=== PATIENT | male | born 1960 | race Caucasian/White ===

== ENCOUNTER 2019-02-10 09:09 | Inpatient (IN) ==
--- NOTE | 2019-01-11 10:54 | Anesthesiology Consultation ---
Date of Service January 11, 2019 Assessment & Plan (1) Encounter for pre-operative examination: Chart Review Chart Review: Patient seen in Pre Admission Testing Consults Requested none Teaching & Discussion Pre-Anesthesia Teaching/Discussion Notes: Instructed NPO after midnight before surgery, except medications with 15 cc of water. Medication instructions provided according to the PAT guidelines. History Surgery Operation Date: 02/10/19 08:50 Proposed Procedures p Left Total Knee Arthroplasty - Jason Bird DO Height/Weight Height: 6 ft 1 in Weight: 127.6 kg Allergies Allergy/AdvReac Type Severity Reaction Status Date / Time No Known Allergies Allergy Unknown Verified 01/05/19 08:05 Medications Home Medications Medication Instructions Recorded Confirmed Last Taken lisinopril 10 mg PO QAM 11/14/18 01/05/19 Unknown omeprazole 40 mg PO QAM 11/14/18 01/05/19 Unknown ondansetron HCl [Zofran] 8 mg PO TID PRN 11/14/18 01/05/19 Unknown Past Medical History Medical History Fibromyalgia GERD (gastroesophageal reflux disease) Hepatitis History of difficult intubation 11/23/12: Intubated using a glidescope and ETT #8.0 History of heavy alcohol consumption LAST DRINK 11/04/18 History of pancreatitis Hypertension Left bundle branch block Osteoarthritis Polymyalgia Past Surgical History Surgical History Fusion of spine LUMBAR History of arthroscopy RT/LEFT KNEE History of cardiac cath 10 YEARS AGO (NO STENTS/ANGIOPLASTY) - [facility] - DOES NOT FOLLOW W/ CARDIO. DUE TO LBBB. History of cholecystectomy 11/23/12: Intubated using a glidescope and ETT #8.0 History of colonoscopy History of discectomy LUMBAR History of esophagogastroduodenoscopy (EGD) History of tonsillectomy History of tooth extraction History of umbilical hernia repair Past Anesthesia History No Hx of Anesthesia Complications and No Family Hx of Anesthesia Complications History of PONV No Motion Sickness Screening History of Motion Sickness: No Social History Smoking Status: Former smoker Smoking cigarettes per day: SMOKED 1 PPD X 5 YEARS Do You Dip or Chew Tobacco: No Smoking End Date: QUIT OVER 20 YEARS AGO Hx Alcohol Use: No Alcohol type: wine, hard liquor and other alcohol intake frequency: 3 or more drinks per day (6 SHOTS AND A BOTTLE OF WINE PER DAY) Alcohol Intake Frequency Comment: LAST DRINK 11/04/18 Hx Substance Use: No substance use type: does not use Exercise / Class Metabolic Activity II 4-5 Yardwork/Stairs/Walk up hill (Rides stationary bike for 45 minutes, 3-4 times per week. Able to climb FOS. Denies CP. Does have mild SOB since gaining weight. ) Review of Systems Patient denies chest pain, shortness of breath, cough, wheezing, palpitations. +JURADO with some activities since gaining the last 30lbs +joint pain (knee, shoulders, neck, back) +acid reflux (controlled with medications) Physical Exam Vital Signs BP: 139/86 P: 77 R: 18 T: 97.8 SPO2: 96% on RA Constitutional + obese ENMT Mouth: + dentures (Upper partial) Thyromental Distance: < 3.5 Finger Breadths (3) Mallampati Class: I Neck normal visual inspection and trachea midline; neck extension not limited Respiratory normal respiratory effort Auscultation: lungs clear to auscultation bilaterally Cardiovascular Rate/Rhythm: regular rate and regular rhythm Heart Sounds: no murmur Vessels: no carotid bruit Neurologic moves all extremities Psychiatric Orientation: alert and oriented x 3 Testing Electrocardiogram Date: 01/11/19 Findings: + NSR @ (88) and + LBBB When compared with ECG of 11/24/12, T wave inversion is more evident in lateral leads. Chest X-Ray Date: 01/11/19 Findings: + NAD FINDINGS: A few small linear densities at the base of the lingula. This favors atelectasis or scarring. The lungs are otherwise clear. The heart is borderline enlarged. This remains unchanged. No pleural effusions. No pneumothorax. IMPRESSION: No significant change compared to the prior study. No acute process. Cardiac Catheterization Date: 12/19/12 Findings: + normal Intervention: + none The LVEDP is mildly elevated. Left ventricular systolic function is low normal. EF 50%. Left ventricular segmental wall motion is normal. The coronary arteries are angiographyically normal. Recommendations: Aggressive risk factor and life style modification. Continued medical management. Laboratory Results 01/11/19 10:35 01/11/19 10:35 Blood Type A Positive 01/11/19 10:35 Antibody Screen NEGATIVE 01/11/19 10:35 PT 10.9 Seconds (9.0-12.0) 01/11/19 10:35 INR 1.1 (0.9-1.1) 01/11/19 10:35 APTT 28.2 Seconds (21.0-31.0) 01/11/19 10:35
[2019-01-11 10:58] LABS: Basophils # (auto) 0.04 K/uL (0-0.2); Basophils % (auto) 0.5 %; Eosinophils # (auto) 0.19 K/uL (0-0.5); Eosinophils % (auto) 2.4 %; Hematocrit (blood only) 40.5 % (42-52); Hemoglobin 14.7 g/dL (14.0-18.0); Immature Granulocytes # (auto) 0.02 K/uL (0.00-0.02); Immature Granulocytes % (auto) 0.3 %; Lymphocytes # (auto) 1.44 K/uL (1.2-3.4); Lymphocytes % (auto) 18.1 %; Mean Corpuscular Hgb Conc 36.3 g/dL (32-36); Mean Platelet Volume 9.5 fL (7.4-10.4); Monocytes # (auto) 0.37 K/uL (0.11-0.59); Monocytes % (auto) 4.6 %; Neutrophils # (auto) 5.91 K/uL (1.4-6.5); Neutrophils % (auto) 74.1 %; Platelet Count 169 K/uL (130-400); RDW Coefficient of Variation 12.7 % (11.5-14.5); RDW Standard Deviation 42.5 fL (36.4-46.3); White Blood Count 7.97 K/uL (4.8-10.8)
--- NOTE | 2019-01-11 11:06 | PAT Medication Instructions ---
Medication Instructions Date of Service January 11, 2019 Home Medications lisinopril 10 mg PO QAM omeprazole 40 mg PO QAM DO NOT take the morning of surgery lisinopril 10 mg PO QAM Take morning of surgery With a small sip of water, OTHERWISE NOTHING TO EAT OR DRINK AFTER MIDNIGHT: omeprazole 40 mg PO QAM Other Notes If you have any questions please call us at [phone] or [phone] or [phone] or [phone]
[2019-01-11 11:11] LABS: INR 1.1 (0.9-1.1); Partial Thromboplastin Time 28.2 Seconds (21.0-31.0); Prothrombin Time 10.9 Seconds (9.0-12.0)
--- NOTE | 2019-01-11 11:26 | XRay Report ---
XR chest Pre-admission PA/Lat HISTORY: Preop. COMPARISON: Chest 11/23/2012. FINDINGS: A few small linear densities at the base of the lingula. This favors atelectasis or scarrin g. The lungs are otherwise clear. The heart is borderline enlarged. This remains unchanged. No pleura l effusions. No pneumothorax. IMPRESSION: No significant change compared to the prior study. No acute process. Electronically signed by: Augusto De Anda M.D. 01/11/2019 11:24 AM
[2019-01-11 13:19] LABS: Albumin Level 3.6 gm/dl (3.4-5.0); BUN Creatinine Ratio 11.5 (10-20); Bilirubin Direct 0.2 mg/dl (0-0.2); Calcium 8.8 mg/dl (8.5-10.1); Creatinine Clr Calc Pharmacy 118.9 ml/min; Est GFR (African American) 101.3; Est GFR (Non-African American) 87.4; Potassium 4.3 mmol/L (3.5-5.1)
[2019-01-11 13:21] LABS: Bilirubin,Total 0.9 mg/dl (0.2-1); Total Protein 7.5 gm/dl (6.4-8.2)
--- NOTE | 2019-02-08 07:37 | History & Physical Report ---
Date of Service February 08, 2019 Assessment & Plan (1) Osteoarthritis of left knee: We will proceed with a left total knee arthroplasty. Postoperatively he will be started on aspirin for DVT prophylaxis and kept overnight in the hospital for postop medical management. He plans to use energy physical therapy upon discharge. Present on Admission?: Yes History of Present Illness Chief Complaint: Primary osteoarthritis of the left knee Primary Care Provider: Laura Casas MD Roscoe is a pleasant 58-year-old male who underwent an ACL reconstruction of his knee at [facility] about 20 years ago. Unfortunately he is gone on to develop osteoarthritis of his left knee. After failing extensive conservative treatment including multiple injections, he is elected to proceed with a left total knee arthroplasty. Allergies Allergy/AdvReac Type Severity Reaction Status Date / Time No Known Allergies Allergy Unknown Verified 01/05/19 08:05 Home Medications Home Medications Medication Instructions Recorded Confirmed Type lisinopril 10 mg PO QAM 11/14/18 01/05/19 History omeprazole 40 mg PO QAM 11/14/18 01/05/19 History ondansetron HCl [Zofran] 8 mg PO TID PRN 11/14/18 01/05/19 History Past Med/Surg History Medical History Fibromyalgia GERD (gastroesophageal reflux disease) Hepatitis History of heavy alcohol consumption LAST DRINK 11/04/18 History of pancreatitis Hypertension Left bundle branch block Osteoarthritis Polymyalgia Surgical History Fusion of spine LUMBAR History of arthroscopy RT/LEFT KNEE History of cardiac cath 10 YEARS AGO (NO STENTS/ANGIOPLASTY) - [facility] - DOES NOT FOLLOW W/ CARDIO. DUE TO LBBB. History of cholecystectomy 11/23/12: Intubated using a glidescope and ETT #8.0 History of colonoscopy History of difficult intubation 11/23/12: Intubated using a glidescope and ETT #8.0 History of discectomy LUMBAR History of esophagogastroduodenoscopy (EGD) History of tonsillectomy History of tooth extraction History of umbilical hernia repair Social History Preferred Language: Bengali Communication Ability: Effective Assembler Knife Required: No Beliefs That Will Affect Care: None Current Living Situation: Spouse Other Information That Helps Us Care for You: No Feels Safe at Home: Yes Safety Concerns: Feels Safe At This Time Smoking Status: Former smoker Hx Alcohol Use: No Hx Substance Use: No Review of Systems All systems reviewed & are unremarkable except as noted in HPI & below Physical Exam Constitutional: WD/WN, vitals as above Eyes: PERRL, conjunctivae normal, anicteric sclerae ENMT: external ear and nose normal, oropharynx normal Neck: trachea midline, no thyromegaly Respiratory: normal respiratory effort Cardiovascular: RRR, no murmur, no edema Gastrointestinal (Abdomen): normal bowel sounds, soft, nontender, no he patosplenomegaly Musculoskeletal: On physical examination of the left knee there is a trace effusion. There is near full range of motion and no evidence of instability. There is significant tenderness palpation along the medial and lateral joint lines and over the distal femoral condyles. Psychiatric: A+Ox3, euthymic affect Results & Data Diagnostic Findings Radiographs of the left knee demonstrate advanced osteoarthritis with joint space narrowing osteophyte formation and [id number] articulation. There are screws placed in both the metadiaphyseal regions of the distal femur and proximal tibia from the ACL procedure.
[~2019-02-10 09:09] MED LIST: ACETAMINOPHEN 500 MG TAB PO SCH; BUPIVACAINE 0.5 % 5 MG/1 ML PF 10ML VIAL ONE; CEFAZOLIN 3000MG 65 ML IV SCH; FAMOTIDINE 20 MG TAB PO SCH; GABAPENTIN 300 MG x 3 PO SCH; LR 500ML BOLUS, THEN 15ML/HR IV SCH; LR 60ML/HR IV SCH; ROPIVACAINE 0.5% 5 MG/ML 30 ML VIAL ONE; ROPIVACAINE 0.5% HCL/PF 150 MG, BUPIVACAINE 0.5% MPF 30 ML, EPINEPHrine 30MG/30ML (OR U... INFIL SCH; TRANEXAMIC ACID 1,000 MG **IV Intra-op IV SCH; TRANEXAMIC ACID 1,000 MG **IV Pre-op IV SCH
--- NOTE | 2019-02-10 09:49 | History & Physical Bridge Note ---
Date of Service February 10, 2019 History & Physical Bridge Note I have examined the patient, reviewed the History & Physical and in the interval since the performance of the History & Physical I have noted the following changes of clinical significance: no changes noted
[2019-02-10] MEDS ORDERED: MIDAZOLAM HCL 1 MG/ML 2ML VIAL ONE ×2 (10:05→12:21)
[2019-02-10] MEDS ORDERED: fentaNYL citrate 100 MCG/2 ML VIAL ONE (10:05)
[2019-02-10] MEDS ORDERED: ePHEDrine sulfate 50 MG/ML AMP IV PRN (11:17)
[2019-02-10] MEDS ORDERED: fentaNYL citrate 100 MCG/2 ML VIAL IV PRN (11:17)
[2019-02-10] MEDS ORDERED: ATROPINE SULFATE 0.1 MG/ML 10ML SYR IV PRN (11:17)
[2019-02-10] MEDS ORDERED: HYDROmorphone INJ 1 MG/ML SYRINGE IV PRN (11:17)
[2019-02-10] MEDS ORDERED: ONDANSETRON INJ 2 MG/ML 2 ML VIAL IV PRN ×2 (11:17→16:37)
[2019-02-10] MEDS ORDERED: POVIDONE-IODINE OP SOLN 30 ML BTL ONE (11:56)
[2019-02-10] MEDS ORDERED: ONDANSETRON INJ 2 MG/ML 2 ML VIAL ONE (11:56)
[2019-02-10] MEDS ORDERED: ORTHO JOINT ANESTHETIC ONE (11:56)
[2019-02-10] MEDS ORDERED: PROPOFOL IV EMULSION 10 MG/ML 20 ML VIAL IV ONE ×4 (12:24→13:49)
--- NOTE | 2019-02-10 14:45 | Operative Report ---
Post Operative Report Pre & Post Diagnosis Operation Date: 02/10/19 11:40 Pre-Op Diagnosis: Left Knee Osteoarthritis Post-Op Diagnosis: Left Knee Osteoarthritis Procedure Operation Date: 02/10/19 11:40 Actual Procedures p Left Total Knee Arthroplasty(Left) - Jason Bird DO Surgeon Jason Bird DO Air Bag Stripper Jason Dee PAC Estimated Blood Loss 20 Findings Consistent with Post-Op Diagnosis Specimens Left femoral and tibial bone Complications none Disposition Disposition: Recovery Room Indications Roscoe is a pleasant 59-year-old male who underwent a left ACL reconstruction over 20 years ago. Unfortunately is gone on to develop arthritis of his left knee. He had significant tightness and deformity of his left knee. After failing years of conservative treatment, he elected to proceed with a left total knee arthroplasty. Description of Procedure This case took about twice as long as a standard total knee arthroplasty due to retained hardware and scarring. The knee was very difficult to bend. I had to release a lot of scar tissue from around the ACL and around the suprapatellar pouch. Special guided instrumentation had to be done to help me get around retained hardware. Implants used: I used a Biomet Vanguard total knee arthroplasty system with a size 70 femur, 75 tibia, 31 patella, and a size 10 PS polyethylene bearing. All components were cemented in place with Palacos G cement. The patient arrived [facility] for the above procedure. There were seen in the preoperative holding area and the operative extremity was identified and signed. There were given a preoperative antibiotic, a spinal anesthetic and an adductor nerve block. There were taken back to the operating room and laid on the table in supine position. There were given basic sedation. The operative knee was then prepped and draped in sterile fashion. A timeout was done, and the patient and the operative extremity was properly identified. A midline incision was made directly over the patella. Dissection was taken down to the extensor mechanism. A subvastus arthrotomy was used. The medial retinaculum was released and the fat pad was mostly left intact. The knee was f lexed and the ACL, PCL, and meniscus were removed. A Biomet signature guide was snapped onto the distal femur. 2 pins were placed. A distal femoral resection guide was then placed. 9 mm was resected off the distal femur at 5 of valgus. A 4-in-1 cutting block was then impacted into place in accordance with the drill holes that were made from the signature guide.. The femur measured to be a size 70. Anterior posterior and chamfer cuts were then made. The posterior stabilizing box guide was then impacted into place and the box was resected for the posterior stabilizing component. The proximal tibia was then exposed. A Biomet signature guide was snapped onto the proximal tibia. 2 drill holes were placed. A proximal tibial resection guide was then placed. The proximal tibia was then resected. The tibia measured to be a size 75. The tibial plate was then placed in the appropriate rotation and the tibia was punched. The posterior aspect of the knee was then opened up and any additional meniscus fragments and osteophytes were removed. Trial components were then placed. I used a size 10 PS polyethylene insert. The knee was brought through a full range of motion and felt to be stable. The patella was then everted and 8 mm was resected off the posterior aspect of the patella. The patella measured to be a size 31. 3 peg holes were then drilled. A trial patella was placed. The knee was once again brought through a full range of motion and felt to be stable. Trial components were then removed. The surrounding soft tissues were injected with 100 cc of an orthopedic pain control cocktail. All components were then cemented into place with Palacos G cement. The final polyethylene insert was then snapped into place and the anterior bar was locked. Once cement was dry the tourniquet was deflated. Hemostasis was obtained. A dilute betadyne lavage was then done for 3 minutes. The joint was then irrigated with normal saline solution. The subvastus arthrotomy was then closed with #1 Vicryl suture. The skin was closed with 2-0 Vicryl, 3-0V lock suture, and linda. A soft compressive dressing was placed. The patient was then transferred to a hospital bed and taken to the postanesthesia care unit in stable condition. They tolerated the procedure well. I attest to the content of the Intraoperative Record and any orders documented therein. Any exceptions are noted below.
--- NOTE | 2019-02-10 15:53 | Anesthesiology Progress Note ---
Date of Service February 10, 2019 Anesthesia Post Procedure Vital Signs Vital Signs: Temp Pulse Pulse Resp BP Pulse Ox 02/10/19 15:04 36.3 C L 87 18 112/78 98 02/10/19 12:05 71 16 117/67 99 02/10/19 09:51 36.9 C 72 18 147/92 H 98 Pain Intensity Left Knee: Pain Intensity: 0 Notes Mental Status: alert / awake / arousable and participated in evaluation Nausea / Vomiting: adequately controlled Pain: adequately controlled Airway Patency, RR, SpO2: stable & adequate BP & HR: stable & adequate Hydration State: stable & adequate Neuraxial Anesthesia: was administered and sensory block is resolving Anesthetic Complications: no major complications apparent
--- NOTE | 2019-02-10 16:01 | XRay Report ---
XR knee LT 2V routine HISTORY: 59 years-old Male Surgical Post Op left knee total joint arthroplasty COMPARISON: CT left knee 01/17/2018 TECHNIQUE: 2 views of the left knee FINDINGS: Left knee total joint arthroplasty and patella resurfacing with proximal tibial and distal femoral ca nnulated screws. Satisfactory alignment without acute fracture. Anterior midline skin linda are not ed with expected postsurgical soft tissue swelling and deep tissue air. Suggested debris noted within the suprapatellar and infrapatellar tissues. Surgical drainage catheter also noted. IMPRESSION: Left knee total joint arthroplasty and patella resurfacing with satisfactory alignment. The above report was generated using voice recognition software. It may contain grammatical, syntax o r spelling errors. Electronically signed by: Momo Norton M.D. 02/10/2019 4:00 PM
[2019-02-10] MEDS ORDERED: NALOXONE HCL 0.4 MG/1 ML VIAL/CARP IV PRN (16:37)
[2019-02-10] MEDS ORDERED: METOCLOPRAMIDE HCL INJ 5 MG/ML 2 ML VIAL IV PRN (16:37)
[2019-02-10] MEDS ORDERED: BISACODYL 10 MG SUPP PR PRN (16:37)
[2019-02-10] MEDS ORDERED: MAGNESIUM HYDROXIDE SUSP 30 ML UDC PO PRN (16:37)
[2019-02-10] MEDS ORDERED: ONDANSETRON 8 MG TABLET PO PRN (16:37)
[2019-02-10] MEDS: KETOROLAC 30 MG/ML VIAL IV SCH ×2 (18:30→23:29)
[2019-02-10] MEDS: SODIUM CHLORIDE 0.9% 1000ML 1,000 ML IV SCH (19:09)
[2019-02-10] MEDS: OXYCODONE HCL IR 5 MG TAB (IMMEDIATE RELEASE) PO PRN ×2 (19:10→23:35)
[2019-02-10] MEDS: CEFAZOLIN 2000MG 2,000 MG/15 ML SYR IV SCH (20:02)
[2019-02-10] MEDS: DOCUSATE SODIUM 100 MG CAP PO SCH (20:04)
[2019-02-10] MEDS: ASPIRIN 81 MG ECTAB PO SCH (20:05)
[2019-02-10] MEDS: SENNA 8.6 MG TAB PO SCH (20:05)
[2019-02-10] MEDS: ACETAMINOPHEN 500 MG TAB PO SCH (21:22)
[2019-02-11] MEDS: SODIUM CHLORIDE 0.9% 1000ML 1,000 ML IV SCH (02:52)
[2019-02-11] MEDS: CEFAZOLIN 2000MG 2,000 MG/15 ML SYR IV SCH (04:46)
[2019-02-11] MEDS: OXYCODONE HCL IR 5 MG TAB (IMMEDIATE RELEASE) PO PRN ×4 (04:46→18:05)
[2019-02-11] MEDS: KETOROLAC 30 MG/ML VIAL IV SCH ×4 (04:47→21:34)
[2019-02-11] MEDS: ACETAMINOPHEN 500 MG TAB PO SCH ×3 (04:47→21:35)
[2019-02-11 05:52] LABS: Hematocrit (blood only) 33.9 % (42-52); Hemoglobin 11.9 g/dL (14.0-18.0); Mean Corpuscular Hgb Conc 35.1 g/dL (32-36); Mean Corpuscular Volume 93.1 fL (80-100); Mean Platelet Volume 9.1 fL (7.4-10.4); Platelet Count 144 K/uL (130-400); RDW Standard Deviation 44.8 fL (36.4-46.3); Red Blood Count 3.64 M/uL (4.7-6.1); White Blood Count 13.84 K/uL (4.8-10.8)
[2019-02-11 06:09] LABS: Calcium 8.1 mg/dl (8.5-10.1); Creatinine Clr Calc Pharmacy 95.1 ml/min; Est GFR (African American) 78.4; Est GFR (Non-African American) 67.6; Potassium 4.6 mmol/L (3.5-5.1)
[2019-02-11] MEDS: MULTIVITAMIN TAB PO SCH (08:41)
[2019-02-11] MEDS: PANTOprazole 40 MG TAB PO SCH (08:41)
[2019-02-11] MEDS: LISINOPRIL 10 MG TAB PO SCH (08:41)
[2019-02-11] MEDS: ASPIRIN 81 MG ECTAB PO SCH ×2 (08:41→20:49)
[2019-02-11] MEDS: DOCUSATE SODIUM 100 MG CAP PO SCH ×2 (08:41→20:48)
--- NOTE | 2019-02-11 08:51 | Orthopedic Progress Note ---
Date of Service February 11, 2019 Assessment & Plan (1) Osteoarthritis of left knee: Overall he is doing fairly well. He will be seen by physical therapy today for ambulation. He is likely going to have more pain later this afternoon. We will keep him in the hospital for IV pain medications. Will see him tomorrow morning. We will change the dressing tomorrow. He is on aspirin for DVT prophylaxis. Present on Admission?: Yes Subjective Roscoe was seen and examined at bedside this morning. He was sitting on the edge of his bed with his knee flexed eating breakfast. Overall he said he is doing very well. He went out and walked into the hallway a little bit last night. His pain is well controlled, he has no complaints. Physical Exam Vital Signs (Past 24 Hours): Last Vital Signs Temp 36.7 C 02/11/19 07:34 Pulse 70 02/11/19 07:34 Resp 16 02/11/19 07:34 BP 132/83 02/11/19 07:34 Pulse Ox 97 02/11/19 07:34 Musculoskeletal: On physical examination of the left knee, the dressing is clean and dry. His legs flexed at about 80 degrees at bedside. He is active dorsiflexion and plantar flexion of his left ankle. Results & Data Laboratory Results H & H 01/11/19 02/11/19 Range/Units 10:35 05:31 Hgb 14.7 11.9 L (14.0-18.0) g/dL Hct 40.5 L 33.9 L (42-52) % Coagulation 01/11/19 Range/Units 10:35 INR 1.1 (0.9-1.1) Diagnostic Findings Postoperative x-rays of the left knee show the prosthesis to be in anatomic alignment without any evidence of fracture dislocation or loosening
--- NOTE | 2019-02-11 09:50 | Anesthesiology Progress Note ---
Date of Service February 11, 2019 Anesthesia Post Procedure Vital Signs Vital Signs: Temp Pulse Pulse Pulse Resp BP BP 02/11/19 07:34 36.7 C 70 16 132/83 02/11/19 02:54 36.6 C 81 18 124/71 02/10/19 23:30 36.5 C 77 16 128/73 02/10/19 19:15 36.4 C L 74 20 128/82 02/10/19 18:18 37.1 C 75 18 130/86 02/10/19 17:07 36.6 C 67 20 114/72 02/10/19 16:37 36.6 C 63 20 123/81 02/10/19 16:15 36.6 C 71 18 116/66 02/10/19 16:03 37.0 C 02/10/19 16:00 68 19 132/78 02/10/19 15:56 81 21 02/10/19 15:55 74 9 L 02/10/19 15:51 76 23 112/56 L 02/10/19 15:50 65 14 02/10/19 15:46 74 33 H 125/74 02/10/19 15:45 76 15 02/10/19 15:41 70 17 127/69 02/10/19 15:40 75 18 02/10/19 15:36 81 16 125/73 02/10/19 15:35 80 18 02/10/19 15:31 75 21 126/80 02/10/19 15:30 72 18 02/10/19 15:26 74 9 L 127/75 02/10/19 15:25 77 16 02/10/19 15:21 84 10 L 124/82 02/10/19 15:20 84 24 02/10/19 15:16 79 18 116/78 02/10/19 15:15 85 21 02/10/19 15:11 92 H 18 120/80 02/10/19 15:10 81 19 02/10/19 15:07 84 16 02/10/19 15:06 84 16 132/74 02/10/19 15:05 87 16 112/78 02/10/19 15:04 36.3 C L 79 87 15 112/78 02/10/19 12:05 71 16 117/67 02/10/19 09:51 36.9 C 72 18 147/92 H Pulse Ox 02/11/19 07:34 97 02/11/19 02:54 98 02/10/19 23:30 95 02/10/19 19:15 95 02/10/19 18:18 93 02/10/19 17:07 98 02/10/19 16:37 97 02/10/19 16:15 99 02/10/19 16:03 98 02/10/19 16:00 97 02/10/19 15:56 99 02/10/19 15:55 99 02/10/19 15:51 99 02/10/19 15:50 98 02/10/19 15:46 99 02/10/19 15:45 98 02/10/19 15:41 98 02/10/19 15:40 99 02/10/19 15:36 99 02/10/19 15:35 100 02/10/19 15:31 100 02/10/19 15:30 100 02/10/19 15:26 100 02/10/19 15:25 100 02/10/19 15:21 100 02/10/19 15:20 100 02/10/19 15:16 100 02/10/19 15:15 100 02/10/19 15:11 96 02/10/19 15:10 100 02/10/19 15:07 100 02/10/19 15:06 100 02/10/19 15:05 100 02/10/19 15:04 100 02/10/19 12:05 99 02/10/19 09:51 98 Pain Intensity Left Knee: Pain Intensity: 4 Notes Mental Status: alert / awake / arousable and participated in evaluation Patient Amnestic to Procedure: Yes Nausea / Vomiting: adequately controlled Pain: adequately controlled Airway Patency, RR, SpO2: stable & adequate BP & HR: stable & adequate Hydration State: stable & adequate Neuraxial Anesthesia: was administered and sensory block resolved Anesthetic Complications: no major complications apparent and Pt Satisfied with anesthetic care
[2019-02-11] MEDS: HYDROmorphone INJ 0.5 MG/0.5 ML SYR IV PRN ×2 (14:06→20:50)
[2019-02-11] MEDS: SENNA 8.6 MG TAB PO SCH (20:48)
[2019-02-12] MEDS ORDERED: OXYCODONE IR HOME PACK PO SCH
[2019-02-12] MEDS: OXYCODONE HCL IR 5 MG TAB (IMMEDIATE RELEASE) PO PRN ×4 (00:45→15:55)
[2019-02-12] MEDS: KETOROLAC 30 MG/ML VIAL IV SCH ×2 (03:59→10:35)
[2019-02-12] MEDS: ACETAMINOPHEN 500 MG TAB PO SCH ×2 (05:34→13:45)
[2019-02-12] MEDS: LISINOPRIL 10 MG TAB PO SCH (09:06)
[2019-02-12] MEDS: MULTIVITAMIN TAB PO SCH (09:07)
[2019-02-12] MEDS: ASPIRIN 81 MG ECTAB PO SCH (09:07)
[2019-02-12] MEDS: DOCUSATE SODIUM 100 MG CAP PO SCH (09:07)
[2019-02-12] MEDS: PANTOprazole 40 MG TAB PO SCH (09:07)
--- NOTE | 2019-02-12 09:34 | Orthopedic Progress Note ---
Date of Service February 12, 2019 Assessment & Plan (1) Osteoarthritis of left knee: Overall is doing fairly well. Is not too much pain with the knee and he participated well with physical therapy yesterday. We will see if he get his bowels moving today. As long as his bowels are moving he will be orthopedically stable for discharge later today. He will follow-up with orthopedics in 2 weeks. Present on Admission?: Yes Russell Malhotra was seen in the hospital room today. He was in the bathroom giving himself a suppository. He is been doing very well with physical therapy. He has been ambulating and his pain is relatively well controlled. He has had some trouble with bowel movements. He has no other complaints. Physical Exam Vital Signs (Past 24 Hours): Last Vital Signs Temp 36.6 C 02/12/19 06:14 Pulse 79 02/12/19 06:14 Resp 16 02/12/19 06:14 BP 108/65 02/12/19 06:14 Pulse Ox 98 02/12/19 06:14 Musculoskeletal: He was in the bathroom this morning and the knee was not thoroughly examined. The dressing has been changed. There is no drainage according to the nursing staff.
--- NOTE | 2019-02-12 09:35 | Discharge Summary ---
Date of Service February 12, 2019 Admission HPI Per Admitting Provider Roscoe is a pleasant 58-year-old male who underwent an ACL reconstruction of his knee at [facility] about 20 years ago. Unfortunately he is gone on to develop osteoarthritis of his left knee. After failing extensive conservative treatment including multiple injections, he is elected to proceed with a left total knee arthroplasty. Specialty Data Orthopedic H & H 01/11/19 02/11/19 Range/Units 10:35 05:31 Hgb 14.7 11.9 L (14.0-18.0) g/dL Hct 40.5 L 33.9 L (42-52) % Coagulation 01/11/19 Range/Units 10:35 INR 1.1 (0.9-1.1) Discharge Data Consultations 02/10/19 16:37 Consult Case Management - Discharge Planning Routine Procedures Performed Operation Date: 02/10/19 11:40 Actual Procedures p Left Total Knee Arthroplasty(Left) - Jason Bird DO [facility] [facility] Course (1) Osteoarthritis of left knee: On February 10, 2019 Roscoe arrived at [facility] and underwent a left total knee Poncho plasty without complication. He had a spinal anesthetic and a left abductor nerve block. Postoperatively he was started on aspirin for DVT prophylaxis and discharged to general orthopedic floors. His hospital course is uneventful. On postop day #1 his H&H was stable and his pain was well controlled. He was able to ambulate well with physical therapy. I did keep him on some IV pain medications throughout the day. On postop day #2 was having a little bit of trouble with his bowels and took a suppository. That seemed to help. He continued to ambulate well with physical therapy. He was then discharged home later in the day. He will follow-up with orthopedics in 2 weeks. Discharge Instructions Home Medications Medication Instructions Recorded Confirmed lisinopril 10 mg PO QAM 11/14/18 02/10/19 omeprazole 40 mg PO QAM 11/14/18 02/10/19 ondansetron HCl [Zofran] 8 mg PO TID PRN 11/14/18 02/10/19 multivitamin 1 tab PO DAILY 02/10/19 02/10/19 Previous Rx's Medication Instructions Recorded aspirin [Ecotrin Low Strength] 81 mg PO BID #84 tab 02/12/19 oxycodone 5 - 10 mg PO Q4H PRN #40 tab 02/12/19
[2019-02-12] MEDS: HYDROmorphone INJ 0.5 MG/0.5 ML SYR IV PRN (13:07)
[2019-02-12] MEDS ORDERED: PERCOCET 5/325MG HOMEPACK PO ONE (15:13)
[2019-02-12] MEDS ORDERED: OXYCODONE IR HOME PACK PO ONE (15:31)
== END 2019-02-12 18:14 | disposition home health service (06) | DRG 470 ==
LOC: ASU 09:09 → 3E 14:48

== ENCOUNTER 2024-03-17 08:34 | Observation (INO) ==
--- NOTE | 2024-03-08 13:42 | PAT Medication Instructions ---
Medication Instructions Date of Service March 08, 2024 Home Medications acetaminophen 500 mg tablet 1,000 mg PO Q6H PRN Pain magnesium 1 tab PO QAM multivitamin 1 tab PO QAM vitamin B complex 1 tab PO QAM MEDICATION INSTRUCTIONS: DO NOT take the morning of surgery magnesium 1 tab PO QAM multivitamin 1 tab PO QAM vitamin B complex 1 tab PO QAM Take morning of surgery With a small sip of water, OTHERWISE NOTHING TO EAT OR DRINK AFTER MIDNIGHT: acetaminophen 500 mg tablet 1,000 mg PO Q6H PRN Pain Take evening before surgery acetaminophen 500 mg tablet 1,000 mg PO Q6H PRN Pain Other Notes If you have any questions please call us at [phone] or [phone] or [phone] or [phone]
--- NOTE | 2024-03-09 11:22 | Anesthesiology Consultation ---
Date of Service March 09, 2024 Assessment & Plan (1) Encounter for pre-operative examination: - Infectious disease screening: Per assessment on 03/08/24: No known infectious disease contacts or current infectious disease symptoms. No noted recent Covid positive test result. - S/P Laparoscopic cholecystectomy, umbilical hernia repair (11/23/12): Glidescope intubation, ETT 8.0 at [facility] - S/P Left TKA (02/10/19): SAB at L3 (x1 attempt) + regional at [facility] - Outpatient joint assessment: Pt currently scheduled for inpatient pathway. If surgeon requests review for outpatient joint pathway, patient is an acceptable candidate for outpatient joint program from anesthesia standpoint pending surgeon's office assessment that patient is motivated, has good support and completes Same Day Joint Program preop requirements. Chart Review Chart Review: Acceptable Risk for Surgery and Patient seen in Pre Admission Testing Teaching & Discussion Pre-Anesthesia Teaching/Discussion Notes: Instructed NPO after midnight before surgery,except medications with 15 cc of water. Medication instructions provided according to the PAT guidelines. History Surgery Operation Date: 03/17/24 12:00 Proposed Procedures p Right Total Knee Arthroplasty - Jason Bird, Height/Weight Height: 6 ft 1 in Weight: 112.7 kg Allergies Allergy/AdvReac Type Severity Reaction Status Date / Time No Known Allergies Allergy Unknown Verified 03/08/24 12:27 Medications Home Medications Medication Instructions Recorded Confirmed Last Taken acetaminophen 500 mg tablet 1,000 mg PO Q6H PRN Pain 03/08/24 03/08/24 Unknown magnesium 1 tab PO QAM 03/08/24 03/08/24 Unknown multivitamin 1 tab PO QAM 03/08/24 03/08/24 Unknown vitamin B complex 1 tab PO QAM 03/08/24 03/08/24 Unknown Past Medical History Medical History Fibromyalgia GERD (gastroesophageal reflux disease) Hepatitis Hx 2018 "due to severe alcohol consumption" History of pancreatitis 2018 Hypertension Left bundle branch block Chronic dating back to at least 11/23/2012 (Echo done 11/23/2012) Osteoarthritis Polymyalgia Exercise / Class Metabolic Activity III < 4 Walking/Shop/Light housework (one FS: No CP, rare SOB) Past Family History Family History Other No family history of adverse response to anesthesia Past Surgical History Surgical History Fusion of spine Lumbar History of arthroscopy R/L knee History of cardiac cath 1998- no stents History of cholecystectomy Laparoscopic cholecystectomy, umbilical hernia repair (11/23/12): Glidescope intubation, ETT 8.0 at [facility] History of colonoscopy History of discectomy Lumbar History of esophagogastroduodenoscopy (EGD) History of tonsillectomy History of tooth extraction History of total left knee replacement (TKR) Left TKA (02/10/19): SAB at L3 (x1 attempt) + regional at [facility] History of umbilical hernia repair Past Anesthesia History Difficult Airway (Laparoscopic cholecystectomy, umbilical hernia repair (11/23/12): Glidescope intubation, ETT 8.0 at [facility]) and No Family Hx of Anesthesia Complications History of PONV No Hx of PONV and No Hx of Motion Sickness Social History Smoking Status: Former smoker Do You Dip or Chew Tobacco: No Smoking End Date: Quit 20s Hx Alcohol Use: No (Hx heavy ETOH use, Last ETOH 2017) Alcohol type: hard liquor Hx Substance Use: No substance use type: does not use Review of Systems Patient denies chest pain, shortness of breath, dyspnea on exertion, fever, chills, cough, wheezing, palpitations. Physical Exam Vital Signs BP 165/92 > 148/88 P 75 TEMP 97.8 SP02 95%RA RESP 16 Physical Decreased cervical extension range of motion. Full TMJ range of motion. TMD 3 finger breaths Mallampati Score 1 Dentition: full upper/lower dentures Lungs: clear throughout to auscultation Cardiac: regular rate and rhythm, no murmurs noted Spine: normal Carotid arteries: negative bruit Extremities: no LE edema Lab Results Anesthesia Preop Results Results Anesthesia Widget: WBC 7.38 K/ul (4.8-10.8) 03/09/24 Hgb 15.1 g/dl (14.0-18.0) 03/09/24 Hct 43.4 % (42.0-52.0) 03/09/24 Plt 226 K/uL (130-400) 03/09/24 Na 139 mmol/L (136-145) 03/09/24 K 3.9 mmol/L (3.5-5.1) 03/09/24 Cl 107 mmol/L (98-107) 03/09/24 CO2 26 mmol/L (21-32) 03/09/24 BUN 13 mg/dl (6-23) 03/09/24 Creat 1.00 mg/dl (0.6-1.4) 03/09/24 Glucose Level 100 mg/dl (70-99(Fasting)) H 03/09/24 PT 10.6 Seconds (9.0-12.0) 03/09/24 PTT 29 Seconds (21-31) 03/09/24 INR 1.0 (0.9-1.1) 03/09/24 Blood Type A Positive 03/09/24 Antibody Screen NEGATIVE 03/09/24 Testing Electrocardiogram Date: 03/09/24 NSR at 72bpm. LBBB. No significant change compared to 01/11/2019 per lime puller comparison. *Hx LBBB dating back to at least 11/23/2012 ECG in [facility]. Echo done 11/23/2012* Chest X-Ray Date: 03/09/24 Findings: + NAD Echocardiogram Date: 11/23/22 EF 55-60%. Septal motion consistent with conduction abnormality. Mild MR.
[~2024-03-17 08:34] MED LIST changes: -ACETAMINOPHEN 500 MG TAB PO SCH; +BUPIVACAINE 0.25% PF 30 ML VIAL ONE; -CEFAZOLIN 3000MG 65 ML IV SCH; -FAMOTIDINE 20 MG TAB PO SCH; -GABAPENTIN 300 MG x 3 PO SCH; -LR 500ML BOLUS, THEN 15ML/HR IV SCH; -LR 60ML/HR IV SCH; -ROPIVACAINE 0.5% 5 MG/ML 30 ML VIAL ONE; -ROPIVACAINE 0.5% HCL/PF 150 MG, BUPIVACAINE 0.5% MPF 30 ML, EPINEPHrine 30MG/30ML (OR U... INFIL SCH; -TRANEXAMIC ACID 1,000 MG **IV Intra-op IV SCH; -TRANEXAMIC ACID 1,000 MG **IV Pre-op IV SCH
[2024-03-17] MEDS ORDERED: MIDAZOLAM HCL 1 MG/ML 2ML VIAL ONE (09:02)
--- NOTE | 2024-03-17 09:17 | History & Physical Bridge Note ---
Date of Service March 17, 2024 History & Physical Bridge Note I have examined the patient, reviewed the History & Physical and in the interval since the performance of the History & Physical I have noted the following changes of clinical significance: no changes noted
[2024-03-17] MEDS ORDERED: ePHEDrine sulfate 50 MG/ML AMP IV PRN (09:21)
[2024-03-17] MEDS ORDERED: fentaNYL citrate PF 100 MCG/2 ML VIAL IV PRN (09:21)
[2024-03-17] MEDS ORDERED: ATROPINE SULFATE 0.1 MG/ML 10ML SYR IV PRN (09:21)
[2024-03-17] MEDS ORDERED: ONDANSETRON INJ 2 MG/ML 2 ML VIAL IV PRN ×2 (09:21→14:06)
[2024-03-17] MEDS: LR 500ML BOLUS, THEN 15ML/HR IV SCH (09:23)
[2024-03-17] MEDS: LR 60ML/HR IV SCH (09:25)
[2024-03-17] MEDS: FAMOTIDINE 20 MG TAB PO SCH (09:26)
[2024-03-17] MEDS: ACETAMINOPHEN 500 MG TAB PO SCH ×2 (09:27→14:30)
[2024-03-17] MEDS: GABAPENTIN 600 MG DOSE PO SCH (09:27)
[2024-03-17] MEDS: dexAMETHasone**PF** 10 MG/ML VIAL IV SCH (09:32)
[2024-03-17] MEDS ORDERED: PROPOFOL IV EMULSION 10 MG/ML 20 ML VIAL IV ONE ×4 (09:47→11:30)
[2024-03-17] MEDS: TRANEXAMIC ACID 1,000 MG **IV Pre-op IV SCH (10:05)
[2024-03-17] MEDS: ceFAZolin 2000MG 2,000 MG/15 ML SYR IV SCH ×2 (10:16→17:32)
[2024-03-17] MEDS ORDERED: fentaNYL citrate PF 100 MCG/2 ML VIAL ONE (10:34)
[2024-03-17] MEDS: ORTHO JOINT ANESTHETIC ONE (10:47)
[2024-03-17] MEDS ORDERED: ONDANSETRON INJ 2 MG/ML 2 ML VIAL ONE (10:58)
[2024-03-17] MEDS: ROPIV 0.5% 246mg, Ketorolac 30mg, EPINEPHrine 0.5mg in NSS INFIL SCH (11:32)
[2024-03-17] MEDS: TRANEXAMIC ACID 1,000 MG **IV Intra-op IV SCH (11:33)
--- NOTE | 2024-03-17 12:53 | Anesthesiology Progress Note ---
Date of Service March 17, 2024 Anesthesia Post Procedure Vital Signs Vital Signs: Temp Pulse Pulse Resp BP Pulse Ox O2 Del Method 03/17/24 12:50 67 16 120/80 94 Room Air 03/17/24 12:40 72 18 124/88 96 Room Air 03/17/24 12:30 74 16 132/81 97 Room Air 03/17/24 12:20 72 14 117/76 99 Room Air 03/17/24 12:10 74 16 113/75 97 Room Air 03/17/24 11:59 36.3 C L 83 16 142/85 H 100 Oxymask 03/17/24 09:03 36.5 C 76 20 178/102 H 98 Room Air O2 Flow Rate 03/17/24 12:50 03/17/24 12:40 03/17/24 12:30 03/17/24 12:20 03/17/24 12:10 03/17/24 11:59 6 03/17/24 09:03 Pain Intensity Right Knee: Pain Intensity: 6 Transfer of Care Handoff Completed per policy Notes Mental Status: alert / awake / arousable and participated in evaluation Patient Amnestic to Procedure: Yes Nausea / Vomiting: adequately controlled Pain: adequately controlled Airway Patency, RR, SpO2: stable & adequate BP & HR: stable & adequate Hydration State: stable & adequate Neuraxial Anesthesia: was administered and sensory block is resolving Anesthetic Complications: no major complications apparent and Pt Satisfied with anesthetic care
--- NOTE | 2024-03-17 12:57 | XRay Report ---
XR knee RT 1 or 2V routine CLINICAL HISTORY: Surgical Post Op TECHNIQUE: 2 views of the right knee were obtained. Comparison: Comparison is made to right knee radiograph 03/08/2024 FINDINGS: Patient is status post total knee arthroplasty with expected postsurgical changes including soft tiss ue swelling and subcutaneous emphysema. No periarticular lucency or hardware fracture is seen. IMPRESSION: Expected postoperative appearance status post placement of total knee arthroplasty. ACT 112: Negative or not required by law. Electronically signed by: Darwin Alvarez M.D. 03/17/2024 12:56 PM
--- NOTE | 2024-03-17 13:25 | Operative Report ---
PG Post Operative Report Pre & Post Diagnosis Operation Date: 03/17/24 10:00 Pre-Op Diagnosis: Right Knee Degenerative Joint Disease Post-Op Diagnosis: Right Knee Degenerative Joint Disease I identified the patient and participated in the time-out.: Yes Procedure Operation Date: 03/17/24 10:00 Actual Procedures p Right Total Knee Arthroplasty(Right) - Jason Bird DO Surgeon Jason Bird DO [employer] Room Attendant Emmett Dee PA-C Estimated Blood Loss 30 Findings Consistent with Post-Op Diagnosis Specimens Right femoral and tibial bone Description of Procedure Implants used: I used a Tawnya Persona total knee arthroplasty system with a size 9 standard PS femur, F tibia, 34 oval patella, and a size 12 CPS polyethylene bearing. All components were cemented in place with Biomet cement. Roscoe dennis [facility] for the above procedure. He was seen in the preoperative holding area and the operative extremity was identified and signed. He was given a preoperative antibiotic, TXA, a spinal anesthetic and an adductor nerve block. He was taken back to the operating room and laid on the table in supine position. He was given basic sedation. The operative knee was then prepped and draped in sterile fashion. A timeout was done, and the patient and the operative extremity was properly identified. A midline incision was made directly over the patella. Dissection was taken down to the extensor mechanism. A medial parapatellar arthrotomy was used. The medial retinaculum was released and the fat pad was mostly excised. The knee was flexed and the ACL, PCL, and meniscus were removed. A drill was sent down the center of the femoral canal followed by an intramedullary kadeem. Off that kadeem a distal femoral cutting block was placed. 9 mm was resected off the distal femur at 5 of valgus. A posterior referencing AP sizing guide was then placed on the distal femur. The femur measured to be a size 9. 2 drill holes were placed in 3 of external rotation. A 4-in-1 cutting block was then impacted into place. Anterior, posterior, and chamfer cuts were then made. The proximal tibia was then exposed. An external tibial alignment guide was placed. A tibial cut guide was then anchored in place and the proximal tibia was then resected. The posterior aspect of the knee was then op ened up and any additional meniscus fragments and osteophytes were removed. The tibia measured to be a size F. The tibial plate was then placed in the appropriate rotation and the tibia was drilled and punched. Trial components were then placed. I used a size 12 CPS polyethylene insert. The knee was brought through a full range of motion and felt to be stable. The peg holes for the femoral component were then drilled. The patella was then everted and 9 mm was resected off the posterior aspect of the patella. The patella measured to be a size 34 oval. 3 peg holes were then drilled. A trial patella was placed. The knee was once again brought through a full range of motion and felt to be stable. Trial components were then removed. The surrounding soft tissues were injected with 100 cc of an orthopedic pain control cocktail. All components were then cemented into place with Biomet cement. The final polyethylene insert was then snapped into place. Once cement was dry the tourniquet was deflated. Hemostasis was obtained. A dilute betadyne lavage was then done for 3 minutes. The joint was then irrigated with normal saline solution. The medial parapatellar arthrotomy was then closed with #1 Vicryl suture. The skin was closed with 2-0 Vicryl, 3-0V lock suture, and linda. A soft compressive dressing was placed. He was then transferred to a hospital bed and taken to the postanesthesia care unit in stable condition. He tolerated the procedure well. Jason Dee PA-C, was present for the entire procedure. He was critical for patient positioning, prepping, draping, retraction exposure, wound closure and application of sterile dressing. I attest to the content of the Intraoperative Record and any orders documented therein. Any exceptions are noted below.
[2024-03-17] MEDS: SODIUM CHLORIDE 0.9% 1,000 ML IV SCH (14:00)
[2024-03-17] MEDS ORDERED: bisacodyL 10 MG SUPP PR PRN (14:06)
[2024-03-17] MEDS ORDERED: MAGNESIUM HYDROXIDE SUSP 30 ML UDC PO PRN (14:06)
[2024-03-17] MEDS ORDERED: METOCLOPRAMIDE HCL INJ 5 MG/ML 2 ML VIAL IV PRN (14:06)
[2024-03-17] MEDS ORDERED: NALOXONE HCL 0.4 MG/1 ML VIAL/CARP IV PRN (14:06)
[2024-03-17] MEDS: KETOROLAC 30 MG/ML VIAL IV SCH (14:31)
[2024-03-17] MEDS: oxyCODONE HCL IR 5 MG TAB (IMMEDIATE RELEASE) PO PRN (17:32)
[2024-03-17] MEDS: DOCUSATE SODIUM 100 MG CAP PO SCH (20:42)
[2024-03-17] MEDS: ASPIRIN 81 MG ECTAB PO SCH (21:40)
[2024-03-17] MEDS: SENNA 8.6 MG TAB PO SCH (21:40)
[2024-03-18] MEDS: HYDROmorphone INJ 0.5 MG/0.5 ML SYR IV PRN (00:12)
[2024-03-18] MEDS: MULTIVITAMIN TAB PO SCH (08:01)
[2024-03-18] MEDS: dexAMETHasone 4 MG TAB PO SCH (08:02)
--- NOTE | 2024-03-18 08:03 | Orthopedic Progress Note ---
Date of Service March 18, 2024 Assessment & Plan (1) Status post right knee replacement: Overall he is doing very well. He is not having much pain in the right knee. He will be seen by physical therapy today for ambulation and range of motion exercises. The nursing staff can change her dressing after physical therapy. We will keep him throughout the day today for pain control. We plan to discharge him to home tomorrow. He is on aspirin for DVT prophylaxis. Russell Malhotra was seen and examined at bedside this morning. Overall is doing very well. He is not having too much pain in the right knee at this time. He has been up and ambulating. He has no complaints.. Review of Systems All systems reviewed & are unremarkable except as noted in HPI & below. Physical Exam On physical examination, the dressing is clean and dry. He is standing at bedside when I entered the room. He has active dorsiflexion plantarflexion of his right ankle.. Results & Data Results & Data Laboratory Results . Diagnostic Findings Postoperative x-rays of the right knee show the prosthesis to be in anatomic alignment without any evidence of fracture complication, or loosening.. PG Care Time/CCT Total # of Minutes Spent Total Time Spent with Patient: Total time spent is greater than 50% in coordination of care (as documented) at patient's floor/unit and/or counseling patient: Coding Level of Care Code 40430 Post Operative Follow-Up Diagnoses Status post right knee replacement Z96.651
--- NOTE | 2024-03-19 09:54 | Orthopedic Progress Note ---
Date of Service March 19, 2024 Assessment & Plan (1) Status post right knee replacement: Overall he is doing well. He is not in too much pain in his right knee. He will be seen by physical therapy today for ambulation and range of motion exercises. He is on aspirin for DVT prophylaxis. He can be discharged home later today. He will follow-up orthopedics in 2 weeks. Russell Malhtora was seen and examined at bedside this morning. Overall he is doing very well. Is not having too much pain in the right knee. He has been ambulating with physical therapy. He is no complaints.. Review of Systems All systems reviewed & are unremarkable except as noted in HPI & below. Physical Exam On physical examination of the right knee, the dressing is clean and dry. His leg is out full extension. He is active dorsiflexion plantarflexion of his right ankle. Results & Data Results & Data Laboratory Results . Diagnostic Findings . PG Care Time/CCT Total # of Minutes Spent Total Time Spent with Patient: Total time spent is greater than 50% in coordination of care (as documented) at patient's floor/unit and/or counseling patient: Coding Level of Care Code 61663 Post Operative Follow-Up Diagnoses Status post right knee replacement Z96.651
--- NOTE | 2024-03-19 09:55 | Discharge Summary ---
Date of Service March 19, 2024 Principal Diagnosis Same as "Discharge Diagnosis" noted below under Discharge Instructions. Discharge Exam On physical examination of the right knee, the dressing is clean and dry. His leg is out full extension. He is active dorsiflexion plantarflexion of his right ankle. Discharge Data Procedures Performed Operation Date: 03/17/24 10:00 Actual Procedures p Right Total Knee Arthroplasty(Right) - Jason Bird DO Ordered Studies 03/17/24 05:00 US - OR guided needle placemen Routine Hospital Course (1) Status post right knee replacement: On March 17, 2024 Roscoe arrived at [facility] and underwent a right knee replacement without complication. He had a spinal anesthetic. Postoperatively he was started on aspirin for DVT prophylaxis and transferred to the general orthopedic floors. His hospital course was uneventful. On postop day #1, his vital signs were stable and his pain was well-controlled. He was able to participate well with physical therapy doing ambulation and range of motion exercises. On postop day #2, he continued to do well. He worked well once again with physical therapy. His pain was controlled. He was then discharged home. He will follow-up orthopedics in 2 weeks. PG Care Time/CCT Total # of Minutes Spent Total Time Spent with Patient: Total time spent is greater than 50% in coordination of care (as documented) at patient's floor/unit and/or counseling patient: Discharge Plan Discharge Items Patient Disposition: Home - Self-Care Reason For Visit: Right Knee Degenerative Joint Disease Discharge Diagnosis: Right knee replacement Activity: Per Instructions section Non-emergency contact: Surgeon Call non-emergency contact if: your wound has increased redness and your wound has increased drainage Follow-up/Referrals: Laura Halwey MD [Primary Care Provider] - Diet: Regular Addtl Attending Provider Instructions: Activity and Therapy Recommendations: * If you are using [facility] then therapy will be provided at your home until they feel you have accomplished all of your goals. * If you are using [facility] then Physical Therapy will be provided until they feel you are ready to start Outpatient Physical Therapy. * If you are not using home therapy then Outpatient Physical Therapy should start about 3-5 days from your day of surgery. Therapy will last about 6-10 weeks * It is important not to put a pillow under your knee when you are relaxing or sleeping. It is just as important to make sure you are getting your knee perfectly straight as it is to regain your knee bend. * You were shown a series of exercises in the hospital. Do these exercises three times each day including the exercises you were shown in physical therapy. * Get up and walk several times each day. For the first four weeks, try not to stand or walk for more than one hour at a time. If you do stand or walk for more than one hour, you will not hurt anything, but your leg will likely swell. * As you feel comfortable, you may change from the walker or crutches to a cane and then to independent walking. Medications: * Narcotic You will likely be sent home from the hospital with a prescription for the narcotic pain medication that worked best throughout your stay. * Cefadroxil -take the antibiotic twice a day for 10 days to help with infection. * Aspirin Most patients will be required to take Aspirin 81mg twice a day for 6 weeks after surgery. This is obtained [id number] and a prescription is not necessary. * Other medications may be prescribed for specific circumstances. If you have any questions, please call the office at . * Resume previous home medications unless otherwise instructed TEDs/Elastic Stockings: The white elastic stockings help limit swelling and prevent blood clots from for yaw in your legs.~ The more you wear them, the more they work. Wear them for six weeks. Dressing Care: The dressing can be changed after physical therapy on postop day #1. Daily dry dressing changes for a few days, especially if the incision is still draining some. If the incision is not draining then you may leave the linda open to air. If there is a little bit of drainage or if the linda are getting stuck on your clothing then cover the incision with a dry dressing. The linda will be removed at your 2 week follow-up appointment. Showering: You may shower 5 days from the day of surgery as long as the incision is no longer draining. You may shower with the linda exposed. Let soapy water run over the linda and pat them dry. Do not scrub or soak the incision. Things To Watch For: * Drainage from the incision site that occurs more than one week after your surgery. * Increased redness at the incision site. * Fever above 102 degrees Fahrenheit. * Unusual chest pain or shortness of breath. * Call [facility] at with any of the above problems Follow-Up Visit: Follow-up with Dr. Bird's PA (Jason Dee) 2-3 weeks after your day of surgery. He will remove your linda and answer any questions. If you have any additional questions or concerns, Dr Bird is usually in the office at the same time and will be available An appointment was probably scheduled when you signed-up for surgery in the office. If you have any questions call Office Instructions: More detailed instructions as well as Frequently Asked Questions were provided in a folder by our office when you signed-up for surgery. Please review these instructions when you get home. If you have any further questions or concerns, please feel free to call the office at [phone] Pending Studies at Discharge: No Stand-Alone Forms: My [facility] Medications and DC Order Prescriptions: New oxycodone 5 mg Tablet 5 mg PO Q4H PRN (Reason: pain) Qty: 30 0RF cefadroxil 500 mg capsule 500 mg PO BID 10 Days Qty: 20 0RF aspirin 81 mg Tablet,Delayed Release (Dr/Ec) 81 mg PO BID 42 Days Qty: 84 0RF Continued acetaminophen 500 mg Tablet 1,000 mg PO Q6H PRN (Reason: Pain) multivitamin Tablet 1 tab PO QAM vitamin B complex Tablet 1 tab PO QAM magnesium Tablet 1 tab PO QAM Discharge Orders: Discharge Order (Routine); Ordered 03/19/24 Ordered By: Jason Bird Admission Data Admit Date/Time: 03/17/24 11:57 Attending Provider: Jason Bird Admit Provider: Jason Bird Primary Care Provider: Laura Hawley Other Providers: Abhilash Hamilton he
== END 2024-03-19 11:42 | disposition home health service (06) ==
LOC: 3E 08:34 → ASU 08:34